=== PATIENT | female | born 1990 | race Hispanic/Latino ===

== ENCOUNTER 2021-05-15 12:37 | Inpatient (IN) | payer OTHER ==
[~2021-05-15] VITALS: Ht 170.2 cm; Wt 146.6 kg
[2021-05-15 12:58] LABS: BASOPHILS % (AUTO) 0.2 % (0.0-5.0); EOSINOPHILS % (AUTO) 0.2 % (0.0-8.0); HEMATOCRIT 37.3 % (36-48); LYMPHOCYTES % (AUTO) 17.4 % (21.0-51.0); MEAN CORPUSCULAR HEMOGLOBIN 27.3 pg (27.0-33.0); MEAN CORPUSCULAR HGB CONC 31.6 g/dL (32.0-36.0); MEAN CORPUSCULAR VOLUME 86.1 fL (79-99); MONOCYTES % (AUTO) 4.1 % (3.0-13.0); NEUTROPHILS % (AUTO) 76.8 % (40.0-77.0); PLATELET COUNT (AUTO) 172 K/uL (130-400); RED BLOOD CELL COUNT(AUTO) 4.33 MIL/uL (4.00-5.50); WHITE BLOOD COUNT (AUTO) 4.7 K/uL (4.8-10.8)
[2021-05-15 13:09] LABS: CREATININE 0.8 mg/dL (0.5-1.5); POTASSIUM 4.3 mmol/L (3.5-5.1)
[2021-05-15 13:13] LABS: ALBUMIN 3.1 g/dL (3.5-5.0); BILIRUBIN,DIRECT 0.1 mg/dL (0.0-0.3); BILIRUBIN,TOTAL 0.3 mg/dL (0.2-1.0); CRP QUANTITATIVE 170.7 mg/L (0.00-9.0); TOTAL PROTEIN, SERUM 7.6 g/dL (6.0-8.3)
[2021-05-15] MEDS ORDERED: DEXAMETHASONE SOD PHOSPHATE 4 MG/ML 1ML VIAL IVP SCH (13:30)
[2021-05-15] MEDS ORDERED: CEFTRIAXONE 1G VIAL IVP SCH (13:30)
[2021-05-15 13:49] LABS: ABG BASE EXCESS -1.7 mmol/L (-2.0-3.0); ABG HCO3 22.5 mmol/L (21.0-28.0); ABG OXYGEN SATURATION 93.3 % (95.0-99.0); ABG PCO2 37 mmHg (32-45)
[2021-05-15 14:00] LABS: ERYTHROCYTE SEDIMENTATION RATE 50 MM/HR (0-20)
[2021-05-15] MEDS ORDERED: ERGOCALCIFEROL (VITAMIN D2) 50,000 UNIT CAPSULE PO ONE (16:30)
[2021-05-15] MEDS ORDERED: [UNRECOGNIZED DRUG - REMARK] MISC SCH (16:30)
[2021-05-15] MEDS ORDERED: COMPOUND IV REFRIGERATED 1 EACH IVSOLN MISC PRN (16:30)
[2021-05-15] MEDS ORDERED: ACETAMINOPHEN 325 MG TAB PO PRN ×2 (16:30)
[2021-05-15] MEDS ORDERED: ONDANSETRON 4MG INJ IV PRN (16:30)
[2021-05-15] MEDS ORDERED: REMDESIVIR (EUA) 520 200 MG in 0.9% NACL 250ML 250 ML IV SCH (17:00)
[2021-05-15] MEDS ORDERED: PHARMACY COMMUNICATION MISC SCH (17:00)
[2021-05-15 19:24] VITALS: BP 125/54
[2021-05-15] MEDS ORDERED: TOCILIZUMAB 400MG VIAL 800 MG in 0.9%NACL 100ML 60 ML IV SCH (20:00)
[2021-05-15] MEDS ORDERED: ERGOCALCIFEROL (VITAMIN D2) 50,000 UNIT CAPSULE ONE ×2 (21:10→21:23)
[2021-05-15] MEDS ORDERED: AZITHROMYCIN 500MG+NS 250ML 250 ML IV ONE (21:11)
[2021-05-15] MEDS ORDERED: 0.9%NACL 100ML 100 ML ONE (21:24)
[2021-05-15] MEDS: CEFTRIAXONE 1G VIAL IVP SCH (22:00)
[2021-05-15] MEDS: ENOXAPARIN SODIUM 40 MG/0.4 ML SYRINGE SQ SCH ×2 (22:00→22:03)
[2021-05-15] MEDS: FAMOTIDINE 20MG VIAL IV SCH (22:00)
[2021-05-15] MEDS: DEXAMETHASONE SOD PHOSPHATE 4 MG/ML 1ML VIAL IVP SCH (22:01)
[2021-05-15 22:03] VITALS: BP 132/69
[2021-05-15] MEDS: DOXYCYCLINE 100MG+NS 250ML IV SCH (23:21)
[2021-05-15] MEDS: AZITHROMYCIN 250 MG TABLET PO SCH (23:21)
[2021-05-16] VITALS (9 sets, daily range): BP systolic 115–142; BP diastolic 63–97
[2021-05-16] MEDS: DOXYCYCLINE 100MG+NS 250ML IV SCH ×3 (04:30→20:03)
[2021-05-16] MEDS: REMDESIVIR LABS MISC SCH ×2 (06:00→20:09)
[2021-05-16 06:43] LABS: HEMATOCRIT 36.5 % (36-48); LYMPHOCYTES % (AUTO) 26.1 % (21.0-51.0); MEAN CORPUSCULAR HEMOGLOBIN 27.2 pg (27.0-33.0); MEAN CORPUSCULAR HGB CONC 32.1 g/dL (32.0-36.0); MEAN CORPUSCULAR VOLUME 84.9 fL (79-99); NEUTROPHILS % (AUTO) 66.8 % (40.0-77.0); PLATELET COUNT (AUTO) 211 K/uL (130-400); RED CELL DISTRIBUTION WIDTH 13.1 % (11.0-15.5); WHITE BLOOD COUNT (AUTO) 3.5 K/uL (4.8-10.8)
[2021-05-16 07:00] LABS: ALBUMIN 2.9 g/dL (3.5-5.0); BILIRUBIN,DIRECT 0.1 mg/dL (0.0-0.3); BILIRUBIN,TOTAL 0.3 mg/dL (0.2-1.0); CREATININE 0.7 mg/dL (0.5-1.5); CRP QUANTITATIVE 148.1 mg/L (0.00-9.0); POTASSIUM 4.2 mmol/L (3.5-5.1); TOTAL PROTEIN, SERUM 7.7 g/dL (6.0-8.3)
[2021-05-16] MEDS ORDERED: ASCORBIC ACID 500 MG TAB PO SCH (09:00)
[2021-05-16] MEDS ORDERED: ZINC SULFATE 220 CAPSULE PO SCH (09:00)
[2021-05-16] MEDS: CEFTRIAXONE 1G VIAL IVP SCH ×2 (09:45→20:09)
[2021-05-16] MEDS: FAMOTIDINE 20MG VIAL IV SCH (09:46)
[2021-05-16] MEDS: ENOXAPARIN SODIUM 40 MG/0.4 ML SYRINGE SQ SCH (09:46)
[2021-05-16] MEDS: AZITHROMYCIN 250 MG TABLET PO SCH (13:25)
[2021-05-16] MEDS: DEXAMETHASONE SOD PHOSPHATE 4 MG/ML 1ML VIAL IVP SCH ×2 (15:34→20:09)
[2021-05-16] MEDS: BENZONATATE 100 MG CAPSULE PO PRN (15:35)
[2021-05-16] MEDS: REMDESIVIR (EUA) 520 100 MG in 0.9% NACL 250ML 250 ML IV SCH (15:35)
[2021-05-16] MEDS: GUAIFENESIN-DM 200/20 MG 10 ML PO SCH ×2 (16:08→20:03)
[2021-05-16] MEDS: INSULIN HUMULIN R 100 UNIT/ML 3ML SQ SCH ×2 (16:30→20:02)
[2021-05-16] MEDS ORDERED: PANTOPRAZOLE 40 MG TAB DR PO SCH (16:30)
[2021-05-16] MEDS: 0.9% NACL 250ML IVPB SCH (20:03)
[2021-05-16] MEDS: ENOXAPARIN SODIUM 60 MG/0.6 ML SQ SCH (20:04)
[2021-05-17] MEDS: GUAIFENESIN-DM 200/20 MG 10 ML PO SCH ×4 (03:28→20:00)
[2021-05-17 04:00] VITALS: BP 132/76
[2021-05-17 04:17] LABS: BASOPHILS % (AUTO) 0.2 % (0.0-5.0); HEMATOCRIT 37.6 % (36-48); LYMPHOCYTES % (AUTO) 19.9 % (21.0-51.0); MEAN CORPUSCULAR HEMOGLOBIN 27.2 pg (27.0-33.0); MEAN CORPUSCULAR HGB CONC 31.6 g/dL (32.0-36.0); MEAN CORPUSCULAR VOLUME 85.8 fL (79-99); MONOCYTES % (AUTO) 6.3 % (3.0-13.0); NEUTROPHILS % (AUTO) 71.8 % (40.0-77.0); PLATELET COUNT (AUTO) 296 K/uL (130-400); RED BLOOD CELL COUNT(AUTO) 4.38 MIL/uL (4.00-5.50); RED CELL DISTRIBUTION WIDTH 12.8 % (11.0-15.5)
[2021-05-17 04:37] LABS: ALBUMIN 2.9 g/dL (3.5-5.0); BILIRUBIN,DIRECT 0.1 mg/dL (0.0-0.3); BILIRUBIN,TOTAL 0.3 mg/dL (0.2-1.0); CREATININE 0.8 mg/dL (0.5-1.5); CRP QUANTITATIVE 66.5 mg/L (0.00-9.0); POTASSIUM 4.1 mmol/L (3.5-5.1); TOTAL PROTEIN, SERUM 7.4 g/dL (6.0-8.3)
[2021-05-17] MEDS: INSULIN HUMULIN R 100 UNIT/ML 3ML SQ SCH ×4 (05:35→20:04)
[2021-05-17 08:08] VITALS: BP 114/60
[2021-05-17] MEDS: DOXYCYCLINE 100MG+NS 250ML IV SCH ×2 (08:55→19:56)
[2021-05-17] MEDS: 0.9% NACL 250ML IVPB SCH ×2 (08:56→19:56)
[2021-05-17] MEDS: CEFTRIAXONE 1G VIAL IVP SCH ×2 (08:57→20:00)
[2021-05-17] MEDS: PANTOPRAZOLE 40 MG TAB DR PO SCH (08:57)
[2021-05-17] MEDS: DEXAMETHASONE SOD PHOSPHATE 4 MG/ML 1ML VIAL IVP SCH ×2 (08:57→20:04)
[2021-05-17] MEDS: ENOXAPARIN SODIUM 60 MG/0.6 ML SQ SCH ×2 (08:58→20:01)
[2021-05-17] MEDS: BENZONATATE 100 MG CAPSULE PO PRN ×2 (09:02→16:44)
[2021-05-17 11:50] VITALS: BP 127/73
[2021-05-17] MEDS: REMDESIVIR (EUA) 520 100 MG in 0.9% NACL 250ML 250 ML IV SCH (16:25)
[2021-05-17 16:57] VITALS: BP 137/65
[2021-05-17 20:00] VITALS: BP 130/89
[2021-05-18] VITALS: BP 140/78
[2021-05-18] MEDS: GUAIFENESIN-DM 200/20 MG 10 ML PO SCH ×4 (03:02→19:31)
[2021-05-18 04:00] VITALS: BP 134/75
[2021-05-18 04:58] LABS: BASOPHILS % (AUTO) 0.1 % (0.0-5.0); HEMATOCRIT 37.9 % (36-48); LYMPHOCYTES % (AUTO) 14.4 % (21.0-51.0); MEAN CORPUSCULAR HEMOGLOBIN 27.2 pg (27.0-33.0); MEAN CORPUSCULAR HGB CONC 32.2 g/dL (32.0-36.0); MEAN CORPUSCULAR VOLUME 84.4 fL (79-99); MONOCYTES % (AUTO) 6.8 % (3.0-13.0); NEUTROPHILS % (AUTO) 76.7 % (40.0-77.0); PLATELET COUNT (AUTO) 325 K/uL (130-400); RED BLOOD CELL COUNT(AUTO) 4.49 MIL/uL (4.00-5.50); RED CELL DISTRIBUTION WIDTH 12.6 % (11.0-15.5)
[2021-05-18] MEDS: REMDESIVIR LABS MISC SCH (05:08)
[2021-05-18 05:16] LABS: ALBUMIN 2.9 g/dL (3.5-5.0); BILIRUBIN,DIRECT 0.1 mg/dL (0.0-0.3); BILIRUBIN,TOTAL 0.3 mg/dL (0.2-1.0); CREATININE 0.8 mg/dL (0.5-1.5); CRP QUANTITATIVE 29.5 mg/L (0.00-9.0); POTASSIUM 4.3 mmol/L (3.5-5.1); TOTAL PROTEIN, SERUM 7.1 g/dL (6.0-8.3)
[2021-05-18] MEDS: INSULIN HUMULIN R 100 UNIT/ML 3ML SQ SCH ×4 (06:33→20:11)
[2021-05-18 08:00] VITALS: BP 134/77
[2021-05-18] MEDS: DOXYCYCLINE 100MG+NS 250ML IV SCH ×2 (08:17→19:31)
[2021-05-18] MEDS: ENOXAPARIN SODIUM 60 MG/0.6 ML SQ SCH ×2 (08:18→19:32)
[2021-05-18] MEDS: 0.9% NACL 250ML IVPB SCH ×2 (08:18→19:32)
[2021-05-18] MEDS: CEFTRIAXONE 1G VIAL IVP SCH ×2 (08:19→19:31)
[2021-05-18] MEDS: PANTOPRAZOLE 40 MG TAB DR PO SCH (08:19)
[2021-05-18] MEDS: DEXAMETHASONE SOD PHOSPHATE 4 MG/ML 1ML VIAL IVP SCH ×2 (08:19→19:31)
[2021-05-18 12:00] VITALS: BP 139/90
[2021-05-18] MEDS: REMDESIVIR (EUA) 520 100 MG in 0.9% NACL 250ML 250 ML IV SCH (15:29)
[2021-05-18 16:00] VITALS: BP 134/84
[2021-05-18 20:00] VITALS: BP 136/78
[2021-05-19] VITALS: BP 147/86
[2021-05-19] MEDS: GUAIFENESIN-DM 200/20 MG 10 ML PO SCH ×4 (02:34→19:50)
[2021-05-19 04:00] VITALS: BP 118/70
[2021-05-19 05:32] LABS: BASOPHILS % (AUTO) 0.2 % (0.0-5.0); HEMATOCRIT 38.5 % (36-48); MEAN CORPUSCULAR HEMOGLOBIN 27.5 pg (27.0-33.0); MEAN CORPUSCULAR HGB CONC 32.2 g/dL (32.0-36.0); MEAN CORPUSCULAR VOLUME 85.4 fL (79-99); MONOCYTES % (AUTO) 6.5 % (3.0-13.0); NEUTROPHILS % (AUTO) 73.8 % (40.0-77.0); PLATELET COUNT (AUTO) 352 K/uL (130-400); RED BLOOD CELL COUNT(AUTO) 4.51 MIL/uL (4.00-5.50); RED CELL DISTRIBUTION WIDTH 12.6 % (11.0-15.5); WHITE BLOOD COUNT (AUTO) 9.3 K/uL (4.8-10.8)
[2021-05-19 05:42] LABS: ALBUMIN 3.1 g/dL (3.5-5.0); BILIRUBIN,DIRECT 0.2 mg/dL (0.0-0.3); BILIRUBIN,TOTAL 0.5 mg/dL (0.2-1.0); CREATININE 0.8 mg/dL (0.5-1.5); CRP QUANTITATIVE 13.9 mg/L (0.00-9.0); POTASSIUM 4.2 mmol/L (3.5-5.1); TOTAL PROTEIN, SERUM 6.7 g/dL (6.0-8.3)
[2021-05-19] MEDS: INSULIN HUMULIN R 100 UNIT/ML 3ML SQ SCH ×4 (05:54→19:52)
[2021-05-19] MEDS: REMDESIVIR LABS MISC SCH (06:00)
[2021-05-19 08:00] VITALS: BP 139/79
[2021-05-19] MEDS: CEFTRIAXONE 1G VIAL IVP SCH ×2 (09:14→19:50)
[2021-05-19] MEDS: DEXAMETHASONE SOD PHOSPHATE 4 MG/ML 1ML VIAL IVP SCH (09:14)
[2021-05-19] MEDS: DOXYCYCLINE 100MG+NS 250ML IV SCH ×2 (09:14→19:50)
[2021-05-19] MEDS: 0.9% NACL 250ML IVPB SCH ×2 (09:15→19:50)
[2021-05-19] MEDS: PANTOPRAZOLE 40 MG TAB DR PO SCH (09:15)
[2021-05-19] MEDS: ENOXAPARIN SODIUM 60 MG/0.6 ML SQ SCH ×2 (09:15→19:51)
[2021-05-19 12:00] VITALS: BP 150/93
[2021-05-19 16:00] VITALS: BP 141/87
[2021-05-19] MEDS: REMDESIVIR (EUA) 520 100 MG in 0.9% NACL 250ML 250 ML IV SCH (16:00)
[2021-05-19 19:53] VITALS: BP 160/77
[2021-05-20] VITALS: BP 140/76
[2021-05-20 04:00] VITALS: BP 139/80
[2021-05-20] MEDS: GUAIFENESIN-DM 200/20 MG 10 ML PO SCH ×4 (04:24→21:26)
[2021-05-20 06:11] LABS: BASOPHILS % (AUTO) 0.6 % (0.0-5.0); EOSINOPHILS % (AUTO) 1.3 % (0.0-8.0); HEMATOCRIT 38.6 % (36-48); LYMPHOCYTES % (AUTO) 25.6 % (21.0-51.0); MEAN CORPUSCULAR HEMOGLOBIN 27.5 pg (27.0-33.0); MEAN CORPUSCULAR HGB CONC 32.4 g/dL (32.0-36.0); MONOCYTES % (AUTO) 8.3 % (3.0-13.0); NEUTROPHILS % (AUTO) 58.1 % (40.0-77.0); PLATELET COUNT (AUTO) 357 K/uL (130-400); RED BLOOD CELL COUNT(AUTO) 4.54 MIL/uL (4.00-5.50); RED CELL DISTRIBUTION WIDTH 12.3 % (11.0-15.5)
[2021-05-20 06:27] LABS: BILIRUBIN,TOTAL 0.4 mg/dL (0.2-1.0); CREATININE 0.8 mg/dL (0.5-1.5); CRP QUANTITATIVE 7.9 mg/L (0.00-9.0); POTASSIUM 3.9 mmol/L (3.5-5.1); TOTAL PROTEIN, SERUM 6.6 g/dL (6.0-8.3)
[2021-05-20] MEDS: INSULIN HUMULIN R 100 UNIT/ML 3ML SQ SCH ×4 (06:49→21:00)
[2021-05-20 07:36] VITALS: BP 128/73
[2021-05-20] MEDS: CEFTRIAXONE 1G VIAL IVP SCH ×2 (09:05→21:08)
[2021-05-20] MEDS: DEXAMETHASONE SOD PHOSPHATE 4 MG/ML 1ML VIAL IVP SCH (09:06)
[2021-05-20] MEDS: 0.9% NACL 250ML IVPB SCH ×2 (09:06→21:07)
[2021-05-20] MEDS: PANTOPRAZOLE 40 MG TAB DR PO SCH (09:06)
[2021-05-20] MEDS: DOXYCYCLINE 100MG+NS 250ML IV SCH ×2 (09:06→21:07)
[2021-05-20] MEDS: ENOXAPARIN SODIUM 60 MG/0.6 ML SQ SCH ×2 (09:07→21:08)
[2021-05-20 11:21] VITALS: BP 139/79
[2021-05-20 16:08] VITALS: BP 137/88
[2021-05-20 20:20] VITALS: BP 134/83
[2021-05-20] MEDS: BENZONATATE 100 MG CAPSULE PO PRN (21:26)
[2021-05-21 00:24] VITALS: BP 130/77
[2021-05-21] MEDS: GUAIFENESIN-DM 200/20 MG 10 ML PO SCH ×3 (02:30→15:22)
[2021-05-21 04:00] VITALS: BP 119/77
[2021-05-21] MEDS: INSULIN HUMULIN R 100 UNIT/ML 3ML SQ SCH ×3 (06:08→16:30)
[2021-05-21 06:36] LABS: BASOPHILS % (AUTO) 0.2 % (0.0-5.0); HEMATOCRIT 39.2 % (36-48); LYMPHOCYTES % (AUTO) 28.6 % (21.0-51.0); MEAN CORPUSCULAR HEMOGLOBIN 27.3 pg (27.0-33.0); MEAN CORPUSCULAR HGB CONC 32.9 g/dL (32.0-36.0); MEAN CORPUSCULAR VOLUME 82.9 fL (79-99); MONOCYTES % (AUTO) 5.5 % (3.0-13.0); NEUTROPHILS % (AUTO) 56.9 % (40.0-77.0); PLATELET COUNT (AUTO) 364 K/uL (130-400); RED BLOOD CELL COUNT(AUTO) 4.73 MIL/uL (4.00-5.50); RED CELL DISTRIBUTION WIDTH 12.3 % (11.0-15.5); WHITE BLOOD COUNT (AUTO) 8.9 K/uL (4.8-10.8)
[2021-05-21 06:54] LABS: ALANINE AMINOTRANSFERASE 90 U/L (12-78); ALBUMIN 3.2 g/dL (3.5-5.0); ASPARTATE AMINOTRANSFERASE 49 U/L (10-37); BILIRUBIN,TOTAL 0.5 mg/dL (0.2-1.0); CARBON DIOXIDE 26 mmol/L (21-32); CHLORIDE 105 mmol/L (101-111); CREATININE 0.8 mg/dL (0.5-1.5); CRP QUANTITATIVE < 2.00 mg/L (0.00-9.0); GLOMERULAR FILTR. RATE CALC 90 mL/min (>60); GLUCOSE,RANDOM 92 mg/dL (70-105); POTASSIUM 3.9 mmol/L (3.5-5.1); SODIUM SERUM 139 mmol/L (136-145); TOTAL PROTEIN, SERUM 6.9 g/dL (6.0-8.3); UREA NITROGEN, BLOOD 19 mg/dL (7-18)
[2021-05-21 08:00] VITALS: BP 140/74
[2021-05-21] MEDS: DEXAMETHASONE SOD PHOSPHATE 4 MG/ML 1ML VIAL IVP SCH (09:16)
[2021-05-21] MEDS: PANTOPRAZOLE 40 MG TAB DR PO SCH (09:34)
[2021-05-21] MEDS: ENOXAPARIN SODIUM 60 MG/0.6 ML SQ SCH (09:34)
[2021-05-21 12:00] VITALS: BP 134/77
[2021-05-21] MEDS ORDERED: DEXA6TAB PO (15:31)
[2021-05-21] MEDS ORDERED: APIX2.5T PO (15:31)
[2021-05-21] MEDS ORDERED: PANT40TA PO (15:31)
[2021-05-21 16:00] VITALS: BP 129/78
[2021-05-22 09:15] LABS: HEPATITIS A ANTIBODY IGM Negative (Negative); HEPATITIS B CORE IGM Negative (Negative); HEPATITIS Bs ANTIGEN SCREEN P Negative (Negative)
== END 2021-05-21 17:30 | disposition home or self-care (01) | DRG 177 ==
LOC: EDH 12:37 → EDHIP 16:01 → 4AH 05-16 08:19
PROVIDERS: ADMIT Internal Medicine; ATTEND Internal Medicine
PROC: XW033E5 Introduction of Remdesivir Anti-infective into Peripheral Vein, Percutaneous Approach, New Technology Group 5 (ICD-10-PCS; principal; 2021-05-15)
PROC: XW033H5 Introduction of Tocilizumab into Peripheral Vein, Percutaneous Approach, New Technology Group 5 (ICD-10-PCS; 2021-05-15)
DX: U07.1 COVID-19 (principal); J12.82 Pneumonia due to coronavirus disease 2019; J80 Acute respiratory distress syndrome; D68.59 Other primary thrombophilia; Z68.42 Body mass index [BMI] 45.0-49.9, adult; E66.01 Morbid (severe) obesity due to excess calories; D72.810 Lymphocytopenia; K75.9 Inflammatory liver disease, unspecified
CPT/HCPCS: 36415; 36600; 71045; 76705; 80048; 80053; 80074; 80076; 82248; 82550; 82728; 82803; 82948; 83605; 83615; 84145; 84484; 85025; 85378; 85651; 86140; 87040; 87071; 87088; 87205; 87635; 87804; 93005; 94760; C9803; G0378; J0456; J0696; J1100; J1650; J3490; J7050